=== PATIENT | female | born 1995 | race African-American/Black ===

== ENCOUNTER 2016-11-21 17:58 | Emergency (ER) | payer MEDICAID ==
[2016-11-21] MEDS ORDERED: IBUPROFEN 600 MG TABLET PO ONE (19:15)
--- NOTE | 2016-11-21 19:16 | ER Document Report ---
HPI - HPI Patient complains to provider of: right foot pain Onset: Other Onset/Duration: Gradual - 5 days Quality of pain: Achy Pain Level: 4 Context: 21-year-old non-working female is complaining of atraumatic dorsal right foot pain when she walks over the third and fifth metatarsal. No chronic diseases. No fever or chills. Associated Symptoms: None Exacerbated by: Walking Relieved by: Denies Similar symptoms previously: No Recently seen / treated by doctor: No - ROS ROS below otherwise negative: Yes Systems Reviewed and Negative: Yes All other systems reviewed and negative - REPRODUCTIVE Reproductive: DENIES: : - DERM Skin Color: Normal Past Medical History - General Information source: Patient - Social History Smoking Status: Never Smoker Frequency of alcohol use: None Drug Abuse: None Lives with: Spouse/Significant other Family History: Arthritis, CAD, CVA, DM, Hyperlipidemia, Hypertension, Malignancy, Thyroid Disfunction Pulmonary Medical History: Reports: Hx Asthma Renal/ Medical History: Denies: Hx Peritoneal Dialysis Surgical Hx: Negative - Immunizations Hx Diphtheria, Pertussis, Tetanus Vaccination: Yes Vertical Provider Document - CONSTITUTIONAL Agree With Documented VS: Yes - INFECTION CONTROL TRAVEL OUTSIDE OF THE [place] IN LAST 30 DAYS: No - HEENT HEENT: Normocephalic - NECK Neck: Supple - MUSCULOSKELETAL/EXTREMETIES Musculoskeletal/Extremeties: MAEW, FROM, Tender - Mild tender without heat, redness, or swelling - NEURO Level of Consciousness: Awake, Alert - DERM Integumentary: Warm, Dry, No Rash Procedures - Immobilization Right Foot Time completed: 20:14 Pre-Proc Neuro Vasc Exam: Normal Immobilizer type: Rodrigo wrap Performed by: PCT Post-Proc Neuro Vasc Exam: Normal Alignment checked and good: Yes Discharge - Discharge Clinical Impression: right foot tendinitis Condition: Good Disposition: HOME, SELF-CARE Instructions: Tendonitis ([facility]), Rodrigo Wrap ([facility]) Additional Instructions: Rodrigo wrap for comfort Motrin for pain See the seat joiner chainstitch Please complete the patient satisfaction survey if you get one, and return it.. If you do not receive a survey, then you can go to the [facility] website, [email or web address] and place your comments about your very good care. Thank you very much. It was a pleasure being your medical provider today. Prescriptions: Ibuprofen [Motrin 600 mg Tablet] 600 mg PO Q8HP PRN #30 tablet PRN Reason: Referrals: LUKE PEACE DPM [ACTIVE STAFF] - Follow up as needed
[2016-11-21 20:29] VITALS: BP 122/69
== END 2016-11-21 20:29 | disposition home or self-care (01) ==
LOC: ER 17:58
DX: M77.51 Other enthesopathy of right foot and ankle (principal); M79.671 Pain in right foot
CPT/HCPCS: 99283; 73630; J3490